=== PATIENT | female | born 1955 | race Caucasian/White ===

== ENCOUNTER → 2020-06-11 | Outpatient (CLI) | payer BC ==
[~2020-06-11] MED LIST: ASPI-691 PO; CHLO25TA PO; VITAMIN B12 PO; VITAMIN C PO; ZINC PO
[2020-06-11 11:41] LABS: BASOPHILS % (AUTO) 1 % (0-1); EOSINOPHILS % (AUTO) 1 % (1-7); LYMPHOCYTES % (AUTO) 31 % (22-44); MEAN CORPUSCULAR HEMOGLOBIN 34.9 pg (27.0-34.8); MEAN CORPUSCULAR HGB CONC 33.9 g/dL (32.4-35.8); MEAN PLATELET VOLUME 7.1 fL (7.4-10.4); MONOCYTES % (AUTO) 10 % (2-9); NEUTROPHILS % (AUTO) 57 % (42-75); PLATELET COUNT 323 x10^3/uL (130-400); RED BLOOD COUNT 4.89 x10^6/uL (3.82-5.3); RED CELL DISTRIBUTION WIDTH 13.2 % (9.6-15.2)
[2020-06-11 11:53] LABS: PROTHROMBIN TIME 10.6 Seconds (9.6-11.5)
[2020-06-11 12:19] LABS: MD SCAN
[2020-06-11 12:37] LABS: MICROSCOPIC AUTO
[2020-06-11 13:01] LABS: ANION GAP 6 mmol/L (5-15); CALCIUM 10.2 mg/dL (8.5-10.1); CHLORIDE 95 mmol/L (98-107)
[2020-06-11 13:02] LABS: ALANINE AMINOTRANSFERASE 43 U/L (12-78); ALBUMIN 4.1 g/dL (3.4-5.0); ALKALINE PHOSPHATASE 108 U/L (45-117); BILIRUBIN,TOTAL 0.4 mg/dL (0.2-1.0); CREATININE 0.82 mg/dL (0.55-1.02); TOTAL PROTEIN 7.4 g/dL (6.4-8.2)
== END | disposition home or self-care (01) ==
LOC: STAR 09:40
PROVIDERS: ATTEND Neurological Surgery
DX: Z01.812 Encounter for preprocedural laboratory examination (principal); Z01.811 Encounter for preprocedural respiratory examination; Z20.828 Contact with and (suspected) exposure to other viral communicable diseases; M48.061 Spinal stenosis, lumbar region without neurogenic claudication; M54.5 Low back pain; R79.1 Abnormal coagulation profile; R82.90 Unspecified abnormal findings in urine; R94.31 Abnormal electrocardiogram [ECG] [EKG]
CPT/HCPCS: 36415; 71046; 80053; 81001; 85025; 85610; 85730; 87077; 87086; 87186; 87635; 93005

== ENCOUNTER 2020-06-16 09:45 | Inpatient (IN) | payer BC, MEDICARE ==
[~2020-06-16] VITALS: Ht 162.6 cm; Wt 57.4 kg
[2020-06-17] MEDS ORDERED: POTA20TA89 PO (05:58)
[2020-06-17] MEDS ORDERED: CHLORHEXIDINE 15 ML UDC MM ONE (06:00)
[2020-06-17] MEDS ORDERED: EPINEPHRINE 1 MG/ML, 1ML ONE (06:20)
[2020-06-17] MEDS ORDERED: VANCOMYCIN 1,000 MG ONE (06:20)
[2020-06-17] MEDS ORDERED: BUPIVACAINE/PF 0.5% ONE (06:20)
[2020-06-17] MEDS ORDERED: BACITRACIN 50,000 UNIT ONE (06:20)
[2020-06-17] MEDS ORDERED: MIDAZOLAM 1 MG/ML, 2ML ONE (06:29)
[2020-06-17] MEDS ORDERED: FENTANYL PF 250 MCG/5ML ONE ×3 (06:29→09:28)
[2020-06-17] MEDS ORDERED: DEXAMETHASONE 4 MG/ML, 1ML ONE (06:33)
[2020-06-17] MEDS ORDERED: NEOSTIGMINE 1 MG/ML, 10ML ONE (06:33)
[2020-06-17] MEDS ORDERED: CEFAZOLIN 1,000 MG ONE (06:33)
[2020-06-17] MEDS ORDERED: ONDANSETRON 2MG/ML, 2ML ONE (06:33)
[2020-06-17] MEDS ORDERED: GLYCOPYRROLATE 0.2MG/1ML, 5ML ONE (06:33)
[2020-06-17] MEDS ORDERED: ROCURONIUM 10MG/ML,5ML ONE (06:33)
[2020-06-17] MEDS ORDERED: PROPOFOL 10 MG/ML, 20ML ONE (06:33)
[2020-06-17 06:39] VITALS: BP 132/83
[2020-06-17] MEDS ORDERED: LABETALOL 5MG/ML, 20ML IV PRN (07:00)
[2020-06-17] MEDS ORDERED: ACETAMINOPHEN 325 MG TABLET PO PRN (07:00)
[2020-06-17] MEDS ORDERED: HALOPERIDOL 5 MG/ML IV PRN (07:00)
[2020-06-17] MEDS ORDERED: morphine SULFATE 10 MG/ML, 1ML IVPush PRN (07:00)
[2020-06-17] MEDS ORDERED: MEPERIDINE/PF 25MG/0.5ML IVPush PRN (07:00)
[2020-06-17] MEDS ORDERED: PROMETHAZINE 25 MG/ML, 1ML IVPush PRN (07:00)
[2020-06-17] MEDS ORDERED: OXYcodone 5 MG/5 ML ORAL.SOL UDC PO PRN (07:00)
[2020-06-17] MEDS ORDERED: FENTANYL PF 100 MCG/2ML IV PRN (07:00)
[2020-06-17] MEDS ORDERED: hydrALAzine 20 MG/ML, 1ML IV PRN (07:00)
[2020-06-17] MEDS ORDERED: LACTATED RINGERS 1,000 ML IV SCH (07:00)
[2020-06-17] MEDS ORDERED: MEPERIDINE/PF 25MG/ML,1ML ONE (11:15)
[2020-06-17] MEDS ORDERED: HYDROmorphone 1 MG/ML, 1ML INJ IVPush PRN (11:30)
[2020-06-17] MEDS ORDERED: METHOCARBAMOL 1,000 MG in DEXTROSE 5% 100 ML IV ONE (11:30)
[2020-06-17] MEDS ORDERED: DIPHENHYDRAMINE 50 MG/ML, 1ML IM PRN (11:30)
[2020-06-17] MEDS ORDERED: LABETALOL 5MG/ML, 20ML IVPush PRN (11:30)
[2020-06-17] MEDS ORDERED: ONDANSETRON 2MG/ML, 2ML IVPush PRN (11:30)
[2020-06-17] MEDS ORDERED: PHARMACY MAY ADJ FOR RENAL FX MC PRN (11:30)
[2020-06-17] MEDS ORDERED: BISACODYL 10 MG SUPP PR PRN (11:30)
[2020-06-17] MEDS ORDERED: DIPHENHYDRAMINE 50 MG CAPSULE PO PRN (11:30)
[2020-06-17] MEDS ORDERED: DIPHENHYDRAMINE 50 MG/ML, 1ML IVPush PRN (11:30)
[2020-06-17] MEDS ORDERED: SENNA/DOCUSATE TABLET PO PRN (11:30)
[2020-06-17] MEDS ORDERED: MAGNESIUM HYDROXIDE 8%, 30ML UDC PO PRN (11:30)
[2020-06-17] MEDS ORDERED: HYDROcodone/APAP 5/325 TABLET PO PRN (11:30)
[2020-06-17] MEDS ORDERED: ACETAMINOPHEN 650 MG/20.3 ML UDC ONE (11:38)
[2020-06-17] MEDS ORDERED: HYDROmorphone 1 MG/ML, 1ML INJ ONE (11:38)
[2020-06-17] MEDS ORDERED: OXYcodone 5 MG/5 ML ORAL.SOL UDC ONE (11:39)
[2020-06-17] MEDS: HYDROmorphone 1 MG/ML, 1ML INJ IVPush PRN ×2 (11:46→11:54)
[2020-06-17] MEDS ORDERED: LORazepam 2 MG/ML, 1ML ONE (12:04)
[2020-06-17 12:20] VITALS: BP 98/66
[2020-06-17] MEDS ORDERED: LORazepam 2 MG/ML, 1ML IVPush PRN (12:30)
[2020-06-17 14:15] VITALS: BP 98/68
[2020-06-17] MEDS ORDERED: ENOXAPARIN 40 MG/0.4 ML SQ SCH (15:00)
[2020-06-17] MEDS: D5%-0.9% NACL+KCL 20MEQ 1,000 ML IV SCH (15:30)
[2020-06-17] MEDS: CEFAZOLIN PMX 1GM/50ML 50 ML IVPB SCH ×2 (15:30→23:22)
[2020-06-17 19:00] VITALS: BP 117/76
[2020-06-17] MEDS ORDERED: METHOCARBAMOL 750 MG TABLET ONE (19:54)
[2020-06-17] MEDS: METHOCARBAMOL 750 MG TABLET PO PRN (19:58)
[2020-06-17] MEDS: HYDROcodone/APAP 10/325 MG TABLET PO PRN (19:59)
[2020-06-17] MEDS: CHLORTHALIDONE 25 MG TABLET PO SCH (19:59)
[2020-06-17] MEDS ORDERED: POTASSIUM CHLORIDE 20 MEQ TAB.ER.PRT PO SCH (21:00)
[2020-06-18 00:17] VITALS: BP 145/81
[2020-06-18] MEDS: HYDROcodone/APAP 10/325 MG TABLET PO PRN ×5 (00:32→21:17)
[2020-06-18 04:14] VITALS: BP 145/87
[2020-06-18] MEDS: METHOCARBAMOL 750 MG TABLET PO PRN ×2 (04:32→21:16)
[2020-06-18] MEDS: D5%-0.9% NACL+KCL 20MEQ 1,000 ML IV SCH (04:33)
[2020-06-18 05:07] LABS: BASOPHILS % (AUTO) 0 % (0-1); EOSINOPHILS % (AUTO) 0 % (1-7); LYMPHOCYTES % (AUTO) 11 % (22-44); MD NO; MEAN CORPUSCULAR HGB CONC 34.5 g/dL (32.4-35.8); MEAN PLATELET VOLUME 6.9 fL (7.4-10.4); MONOCYTES % (AUTO) 11 % (2-9); NEUTROPHILS % (AUTO) 78 % (42-75); PLATELET COUNT 331 x10^3/uL (130-400); RED BLOOD COUNT 3.68 x10^6/uL (3.82-5.3); RED CELL DISTRIBUTION WIDTH 13.4 % (9.6-15.2)
[2020-06-18 05:18] LABS: ALBUMIN 3.1 g/dL (3.4-5.0); ANION GAP 8 mmol/L (5-15); CALCIUM 9.5 mg/dL (8.5-10.1); CHLORIDE 99 mmol/L (98-107)
[2020-06-18 05:19] LABS: CREATININE 0.76 mg/dL (0.55-1.02)
[2020-06-18] MEDS: ENOXAPARIN 40 MG/0.4 ML SQ SCH (05:49)
[2020-06-18 07:35] VITALS: BP 135/79
[2020-06-18] MEDS: CHLORTHALIDONE 25 MG TABLET PO SCH ×2 (07:53→20:11)
[2020-06-18] MEDS: POTASSIUM CHLORIDE 20 MEQ TAB.ER.PRT PO SCH ×2 (07:53→20:11)
[2020-06-18] MEDS: ASA/APAP/ CAFFEINE TABLET PO SCH (07:54)
[2020-06-18 13:55] VITALS: BP 118/74
[2020-06-18 18:38] VITALS: BP 132/84
[2020-06-19 00:23] VITALS: BP 149/82
[2020-06-19] MEDS: HYDROcodone/APAP 10/325 MG TABLET PO PRN ×2 (03:22→07:54)
[2020-06-19 05:37] LABS: BASOPHILS % (AUTO) 1 % (0-1); EOSINOPHILS % (AUTO) 0 % (1-7); LYMPHOCYTES % (AUTO) 12 % (22-44); MEAN CORPUSCULAR HEMOGLOBIN 36.1 pg (27.0-34.8); MEAN CORPUSCULAR HGB CONC 34.8 g/dL (32.4-35.8); MEAN PLATELET VOLUME 6.8 fL (7.4-10.4); MONOCYTES % (AUTO) 8 % (2-9); NEUTROPHILS % (AUTO) 79 % (42-75); PLATELET COUNT 320 x10^3/uL (130-400); RED BLOOD COUNT 3.53 x10^6/uL (3.82-5.3); RED CELL DISTRIBUTION WIDTH 13.4 % (9.6-15.2)
[2020-06-19 05:39] LABS: MD NO
[2020-06-19] MEDS: ENOXAPARIN 40 MG/0.4 ML SQ SCH (05:49)
[2020-06-19 07:00] VITALS: BP 127/77
[2020-06-19] MEDS: CHLORTHALIDONE 25 MG TABLET PO SCH (07:54)
[2020-06-19] MEDS: POTASSIUM CHLORIDE 20 MEQ TAB.ER.PRT PO SCH (07:54)
[2020-06-19] MEDS: ASA/APAP/ CAFFEINE TABLET PO SCH (07:55)
[2020-06-19] MEDS ORDERED: HYDR-3246 PO (09:37)
[2020-06-19] MEDS ORDERED: METH750T87 PO (09:39)
[2020-06-19] MEDS ORDERED: METHOCARBAMOL 750 MG TABLET PO SCH (19:30)
== END 2020-06-19 11:28 | disposition home or self-care (01) | DRG 460 ==
LOC: ORIP 06-17 05:23 → 4NW 06-17 13:06 → DCLOUNGE 06-19 10:47
PROVIDERS: ADMIT Neurological Surgery; ATTEND Neurological Surgery
PROC: 0SG03AJ Fusion of Lumbar Vertebral Joint with Interbody Fusion Device, Posterior Approach, Anterior Column, Percutaneous Approach (ICD-10-PCS; 2020-06-17)
PROC: 01NB3ZZ Release Lumbar Nerve, Percutaneous Approach (ICD-10-PCS; 2020-06-17)
PROC: 01NR3ZZ Release Sacral Nerve, Percutaneous Approach (ICD-10-PCS; 2020-06-17)
PROC: 0SG00A0 Fusion of Lumbar Vertebral Joint with Interbody Fusion Device, Anterior Approach, Anterior Column, Open Approach (ICD-10-PCS; principal; 2020-06-17 07:00)
PROC: 0SG00K0 Fusion of Lumbar Vertebral Joint with Nonautologous Tissue Substitute, Anterior Approach, Anterior Column, Open Approach (ICD-10-PCS; 2020-06-17 07:00)
DX: M47.26 Other spondylosis with radiculopathy, lumbar region (principal); M43.16 Spondylolisthesis, lumbar region; M48.062 Spinal stenosis, lumbar region with neurogenic claudication; M51.16 Intervertebral disc disorders with radiculopathy, lumbar region; Z72.89 Other problems related to lifestyle
CPT/HCPCS: 36415; 72100; S0020; 72131; 80048; 82040; 84132; 85025; C1713; G0378; J0171; J0690; J1100; J1170; J1650; J2175; J2250; J2405; J2704; J2710; J3010; J3370; C1763; C1889; J2060; J2800; J3480; J7120